=== PATIENT | male | born 1975 | race Caucasian/White ===

== ENCOUNTER 2021-06-04 07:40 | Outpatient (REF) | payer BC, SELFPAY ==
[2021-06-04 09:02] LABS: Cholesterol 185 mg/dL; Glucose Fasting 115 mg/dL (60-99); HDL Cholesterol 46 mg/dL; LDL Cholesterol Calculated 119 mg/dl; Triglycerides 104 mg/dL
== END 2021-06-04 07:41 | disposition home or self-care (01) ==
LOC: HO.LAB 07:40
PROVIDERS: PCP Family Medicine; Visit Provider Family Medicine
DX: Z86.79 Personal history of other diseases of the circulatory system (principal)
CPT/HCPCS: 36415; 80061; 82947

== ENCOUNTER 2021-10-02 06:38 | Outpatient (REF) | payer BC, SELFPAY ==
[2021-10-02 07:39] LABS: Estimated Average Glucose 111 mg/dL; Hemoglobin A1c % 5.5 %
[2021-10-02 07:41] LABS: Glucose Fasting 110 mg/dL (60-99)
[2021-10-02 08:09] LABS: Free T4 (Free Thyroxine) 0.97 ng/dL (0.71-1.85); Thyroid Stimulating Hormone 0.39 uIU/mL (0.32-4.0)
== END 2021-10-02 06:39 | disposition home or self-care (01) ==
LOC: HO.LAB 06:38
PROVIDERS: PCP Family Medicine; Visit Provider Family Medicine
DX: R00.0 Tachycardia, unspecified (principal); R73.9 Hyperglycemia, unspecified
CPT/HCPCS: 36415; 82947; 83036; 84439; 84443

== ENCOUNTER 2024-05-04 10:31 | Day surgery (SDC) | payer BC, SELFPAY ==
[2024-05-02 14:34] VITALS: BMI 27.0
--- NOTE | 2024-05-03 09:54 | HO.ANESPROP2 ---
Documented by User: Chelsi Welsh NP 05/03/24 09:54 HPI - Anesthesia Eval Consult details Narrative: 48yo M for Colonoscopy [facility] Past Medical History Medical History (Updated 05/04/24 @ 11:29 by Concepcion Gu MD) Pneumothorax Surgical History Surgical History History of total replacement of right shoulder joint Social History Social History Household Members: Spouse Patient Tobacco Use Status: Never used Tobacco Have you been hit, kicked, punched, or otherwise hurt by someone within the past year? If so, by whom?: No Are you DNR?: No Advance Directives: No Advance Directives Information Provided: Yes Recently lost weight without trying: No Nutrition Risks: No Nutritional Risk Meds Allergies Allergy/AdvReac Type Severity Reaction Status Date / Time No Known Allergies Allergy Verified 05/02/24 14:34 Home Medications ?Medication ?Instructions ?Recorded ?Confirmed ?Last Taken ?Type No Known Home Meds 05/02/24 05/02/24 Unknown History Exam Height,Weight and Vital Signs: Height 6 ft Weight 90.265 kg Assessment and Plan Assessment Anesthesia Assessment: Chart Reviewed Documented by User: Concepcion Gu MD 05/04/24 11:31 [facility] Past Medical History Medical History (Updated 05/04/24 @ 11:29 by Concepcion Gu MD) Pneumothorax Family History Family history of problems with anesthesia: No Surgical History Surgical History History of total replacement of right shoulder joint History of Problems with Anesthesia: No Social History Social History Household Members: Spouse Patient Tobacco Use Status: Never used Tobacco Have you been hit, kicked, punched, or otherwise hurt by someone within the past year? If so, by whom?: No Are you DNR?: No Advance Directives: No Advance Directives Information Provided: Yes Recently lost weight without trying: No Nutrition Risks: No Nutritional Risk Meds Allergies Allergy/AdvReac Type Severity Reaction Status Date / Time No Known Allergies Allergy Verified 05/02/24 14:34 Home Medications ?Medication ?Instructions ?Recorded ?Confirmed ?Last Taken ?Type No Known Home Meds 05/02/24 05/02/24 Unknown History Exam Height,Weight and Vital Signs: Height 6 ft Weight 90.265 kg Vital Signs Temp Pulse Resp BP Pulse Ox O2 Del Method 05/04/24 10:38 98.7 F 102 H 18 137/87 98 Room Air Airway Mallampati Class: III TM Dist: >3cm Neck ROM: Full Loose/Missing/Broken Teeth: Yes (Chipped top front left. Denies loose or missing teeth) Heart: RRR Lungs: CTAB Assessment and Plan Assessment Anesthesia Assessment: Anesthesia Plan Discussed and Chart Reviewed Final Anesthetic Review Family History of Problems with Anesthesia: No History of Problems with Anesthesia: No NPO: Yes ASA Class: II Final Preanesthetic Review: No Changes in Pt Med Stat, Meds/Allgs Chart Reviewed, Consent Obtained/Reviewed and Anes Risks/Benef Reviewed Patient Risk: Low Procedure Risk: Low Assessment/Block/Sedation in SS: Assess/Block/Sedation-SS Anesthetic Plan Anesthetic Plan: TIVA Disposition: Standard PACU
[2024-05-04 10:38] VITALS: BP 137/87; PULSE 102; RESP 18; TEMP 37.1; O2SAT 98; BMI 27.3
[2024-05-04] MEDS: Lactated Ringers 1,000 ML 100 ML IVCONT (11:06)
[2024-05-04 12:20] VITALS: BP 101/66; PULSE 91; RESP 16; TEMP 36.9; O2SAT 95
--- NOTE | 2024-05-04 12:22 | PM.OP ---
Brief Operative Note Date of Service: 05/04/24 Pre-op diagnosis: Screening Post-op diagnosis: other (Colon polyp) Procedure: Colonoscopy to the cecum and TI with bx/removal of polyp Surgeon: Hernando Barker MD Anesthesia: MAC Was an Parole Supervisor used for this Procedure?: No Estimated blood loss (mL): 2.0 Pathology: other (A. Ascending colon polyp) Condition: stable Disposition: PACU
[2024-05-04 12:35] VITALS: BP 102/68; PULSE 84; RESP 18; TEMP 36.6; O2SAT 97
--- NOTE | 2024-05-04 12:40 | OP_ITS ---
DATE OF SERVICE: 05/04/2024 SURGEON: Hernando Barker MD INDICATIONS: The patient presents for evaluation of colorectal cancer screening. Full consent obtained from him for this, including risks of bleeding and perforation. PREOPERATIVE DIAGNOSIS: Colorectal cancer screening. POSTOPERATIVE DIAGNOSIS: Colorectal cancer screening, small colon polyp, diverticulosis, and internal hemorrhoids. PROCEDURE PERFORMED: Colonoscopy to cecum and terminal ileum with biopsy and removal of polyp. ESTIMATED BLOOD LOSS: COMPLICATIONS: ANESTHESIA: Monitored anesthesia care. ASSISTANTS: SPECIMENS: DESCRIPTION OF PROCEDURE: The patient was placed in the left lateral decubitus position. The digital rectal exam revealed no abnormalities. The Olympus video pediatric colonoscope was entered into the rectum and advanced easily to the cecum. Once in the cecum, I did identify normal-appearing cecal pouch with appendiceal orifice and a normal-appearing ileocecal valve. The terminal ileum was cannulated and appeared normal. The scope was withdrawn back in the colon. The entire cecum and ileocecal valve appeared normal. The scope was slowly withdrawn assessing all mucosal surfaces carefully. Preparation was excellent. In the proximal ascending colon was a flat, approximately 3 or 4 mm polyp, which was biopsied and completely removed with cold biopsy forceps. I did not visualize any other polyps, colitis, nor angiodysplasia. There was a mild amount of sigmoid diverticulosis. In the rectum, scope was retroflexed visualizing internal hemorrhoids, but no other pathology. The rectal mucosa appeared normal. Scope was straightened and withdrawn from the patient. He tolerated the procedure well and was returned to the recovery area in stable condition. IMPRESSION: 1. Small colon polyp. 2. Internal hemorrhoids. 3. Diverticulosis. PLAN: The results of the biopsy will be checked. If the colon polyp is a tubular adenoma, I would recommend a followup coloscopy in 5 years. If it is only hyperplastic, I would recommend a followup coloscopy in 10 years. He will otherwise see me on a p.r.n. basis. MD EMY Sepulveda/CORY / [id number]
== END 2024-05-04 13:10 | disposition home or self-care (01) ==
PROVIDERS: PCP Family Medicine; Visit Provider Internal Medicine
PROC: 0DJD8ZZ Inspection of Lower Intestinal Tract, Via Natural or Artificial Opening Endoscopic (ICD-10-PCS; CPT 45378; principal; 2024-05-04 11:40)
DX: Z12.11 Encounter for screening for malignant neoplasm of colon (principal); D12.2 Benign neoplasm of ascending colon; K57.30 Diverticulosis of large intestine without perforation or abscess without bleeding; K64.8 Other hemorrhoids; Z87.09 Personal history of other diseases of the respiratory system; Z96.611 Presence of right artificial shoulder joint
CPT/HCPCS: 45380; 88305; J2003; J2704

== ENCOUNTER 2025-03-06 15:42 | Outpatient (AMB) | payer BC, SELFPAY ==
--- OUTSIDE RECORDS SUMMARY | 2024-05-04 06:50 | XMS_ITS ---
Author Organization [facility] Address [address] [place] [address] Care Team Providers Care Configuration Technician Name Role Phone Himanshu (RETIRED) Terrence FREED Primary Care Provider Unavailable Hernando Barker Unavailable [phone] REASON FOR VISIT screening colon Problems Problem Type SNOMED Code ICD Code Onset Dates Problem Status W/U Status Risk Notes Problem Diverticular disease of colon (076828876) Diverticulosis of large intestine without perforation or abscess without bleeding (K57.30) Active confirmed Encounters Encounter Location Date Provider Diagnosis [facility] [place] [address], [place] [phone] 05/04/2024 Hernando Barker Colon cancer scree erik [...] * CRISTOPHER ROJASDOB: 5 (49 yo M)Acc No.[id number]:05/04/2024 COLON WITH MAC Patient: CRISTOPHER CHILDS Provider: Sharif Barker MD :1975 A ge:48 Y S ex:Male Date:05/04/2024 Address: [address], [place], [id number] Pcp:Terrence Downs (RETIRED) MD Subjective: * Chief [...] Modifiers: PT Billing Information: * Procedure Codes: 52593 COLONOSCOPY AND BIOPSY. Modifiers: PT * The named appointment provid er may or may not be the originator of this progress note, and it is not deemed complete until electronically signed by the appointment provider. Sign off status: Pending * Provider: Sharif Barker MD Date: 0 05/04/2024 Generated for [place] angelo/Lety/Caronitting on: 05/07/2024 04:16 AM EST
--- NOTE | 2025-03-06 15:43 | A.OFFPC_ITS ---
Vital Signs 03/06/25 15:48 Height 5 ft 10.24 in Weight 87.997 kg BMI 27.6 BP 124/80 Blood Pressure Location Lt brachial Position Sitting Respiration 18 Pulse 85 Pulse Source Pulse Oximeter Temp 97.4 F Temp Source Temporal Artery Scan Pulse Oximetry (%) 99 Oxygen Delivery Method Room Air Intake Visit Reasons: 6 MO F/UP - KRUNAL PT - see comments Deicer Repairer Pneumatic Required: No Accompanied by: Self / Same As Patient Allergies No Known Allergies Allergy (Verified 03/06/25 15:44) Tobacco use date assessed: 03/06/25 Dental Screening Dental Screen Date: 03/06/25 Did you have a dental visit in the last 12 months?: Yes Did you have a dental problem in the last 6 months where you did not have access to dental care?: No Was dental information given to patient?: Patient has dentist HPI HPI Comments History of Present Illness Details 49-year-old male presenting to [facility] care. Last seen by Dr. Downs, last seen about 6 months. Concerns: Snoring- canceled prior sleep study d/t improvement in symptoms. Does have apneic episodes intermittently. Reports this happens primarily with alcohol use Reviewed past medical, family, social, surgical history Health maintenance: Last colonoscopy 04/2024 with 5 year follow-up advised due to tubular adenoma. Dr. Barker ROS: General: No fevers, malaise, unintentional weight loss HEENT: No blurred vision, diplopia. No sore throat, nasal congestion, rhinorrhea, sinus pain, ear pain Cardiovascular: No chest pain, palpitations, or leg edema Respiratory: No shortness of breath, wheezing, cough GI: No abdominal pain, nausea, vomiting, diarrhea, constipation, melena, hematochezia : No dysuria, hematuria, increased urinary frequency, decreased urinary output MSK: No myalgia, back pain Neuro: No headaches, weakness, paresthesias Skin: No rashes or lesions EXAM: Constitutional - Awake and Alert, No apparent distress Eyes - PERRL Cardiovascular - S1S2, RRR, No edema Respiratory - Normal lung expansion, Normal respiratory effort, No respiratory distress, CTA bilaterally Extremities - no calf tenderness bilaterally, no swelling Skin - Warm/Dry Neurological - Alert & oriented x3 Psychological - Appropriate affect [facility] Medical History H/O fracture of hip Pneumothorax Surgical History History of colonoscopy (~05/04/24) History of total replacement of right shoulder joint Family History Maternal Grandmother Stomach cancer Stroke Social History Household Members: Spouse Housing: House Patient Tobacco Use Status: Never used Tobacco e-Cigarette/Vaping Use: Never Used service: No Current occupational status: employed Current occupation: [employer] Questionnaire AUDIT C Alcohol Use Questionnaire (AUDIT-C) 1. How often do you have a drink containing alcohol?: 2-4 times a month 2. How many drinks containing alcohol do you have on a typical day when you are drinking?: 3 or 4 3. How often do you have six or more drinks on one occasion?: Never Total Score: 3 Physical exam (Primary Care) Vital Signs: Last Vital Signs Temp 97.4 F 03/06/25 15:48 Pulse 85 03/06/25 15:48 Resp 18 03/06/25 15:48 BP 124/80 03/06/25 15:48 Pulse Ox 99 03/06/25 15:48 Oxygen Delivery Method Room Air 03/06/25 15:48 BMI result Body Mass Index 27.6 Tobacco/Smoking Status: Tobacco use Status Tobacco use date assessed 03/06/25 03/06/25 15:50 Patient Tobacco Use Status Never used Tobacco 03/06/25 15:50 e-Cigarette/Vaping Use Never Used 03/06/25 15:50 Coding Level of Care Code New Pt Level 4 (52947) Diagnoses Encounter to establish care Z76.89 Snoring R06.83 Sleep apnea G47.30 Fatigue R53.83 Assessment & Plan Assessment & Plan (1) Encounter to establish care: Code(s): Z76.89 - Persons encountering health services in other specified circumstances Category: Medical Plan: 49-year-old male presenting to establish care. Reviewed past medical, surgical, family, social history. Additional plan as below (2) Snoring: Code(s): R06.83 - Snoring Category: Medical Plan: Referred for sleep study (3) Sleep apnea: Code(s): G47.30 - Sleep apnea, unspecified Category: Medical Plan: Referred for sleep study (4) Fatigue: Code(s): R53.83 - Other fatigue Category: Medical Plan: Labs ordered as below. Counseled on healthy sleep habits Orders: Orders Hemoglobin A1c 03/06/25 R53.83 - Other fatigue, Z76.89 - Persons encountering health services in other specified circumstances Lipid Panel 03/06/25 R53.83 - Other fatigue, Z76.89 - Persons encountering health services in other specified circumstances Vitamin D 25-OH Total 03/06/25 R53.83 - Other fatigue TSH reflex Free T4 03/06/25 R53.83 - Other fatigue IRON PROFILE 03/06/25 R53.83 - Other fatigue RT home sleep study 03/06/25 G47.30 - Sleep apnea, unspecified, R06.83 - Snoring, Z87.81 - Personal history of (healed) traumatic fracture Basic Metabolic Panel 03/06/25 R53.83 - Other fatigue, Z76.89 - Persons encountering health services in other specified circumstances Complete Blood Count Auto Diff 03/06/25 R53.83 - Other fatigue, Z76.89 - Persons encountering health services in other specified circumstances Liver Panel 03/06/25 R53.83 - Other fatigue, Z76.89 - Persons encountering health services in other specified circumstances Prostate Specific Antigen 03/06/25 R53.83 - Other fatigue, Z76.89 - Persons encountering health services in other specified circumstances Testosterone, Total 03/06/25 R53.83 - Other fatigue
[2025-03-06 15:48] VITALS: BP 124/80; PULSE 85; RESP 18; TEMP 36.3; O2SAT 99; BMI 27.6
--- OUTSIDE RECORDS SUMMARY | 2025-03-07 04:16 | XMS_ITS | Patient Health Record ---
Author Organization [facility] Address [address] [place] [address] Care Team Providers Care Forensic Science Technician Name Role Phone Himanshu (RETIRED) Terrence FREED Primary Care Provider Unavailable Hernando Barker Unavailable [phone] Allergies No Known Allergies Results Component Value Reference Range Notes Pathology (Not yet reviewed by provider) Interpretation: Performing Lab:[facility], [address] [place] [phone] Notes/Report: Reason For Referral No Information Immunizations Vaccine Route Administration Date Status Comme nts Influenza Unknown 01/04/2024 Refused Social History Tobacco Use: Social History Observation Description Date Details (start date - stop date) Never Smoker NA - NA Social History Drugs/Alcohol: Social Info Question Answer Notes Alcohol Screen Did you have a drink containing alcohol in the past year? Yes How often did you have a drink containing alcohol in the past year? 2 to 4 times a month (2 points) How many drinks did you have on a typical day when you were drinking in the past year? 3 or 4 drinks (1 point) How often did you have 6 or more drinks on one occasion in the past year? 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 [employer] Section Notes: Nonsmoker; 6 beers on the we ekend Problems Problem Type SNOMED Code ICD Code Onset Dates Problem Status W/U Status Risk Notes Problem Pre-procedure evaluation check (942332117) Encounter for other preprocedural examination (Z01.818) Active confirmed Problem Diverticular disease of colon (017740853) Diverticulosis of large intestine without perforation or abscess without bleeding (K57.30) Active confirmed Problem Screening for malignant neoplasm of colon (883887304) Screen for colon cancer (Z12.11) Active confirmed Encounters Encounter Location Date Provider [place] [facility] [place] [address], [place] [phone] [place]/04/2024 Hernando Barker Colon cancer scree erik [...] hemorrhoids (ICD-10 - K64.8) Plan Of Treatment Pending Test Test Name Order Date Pathology 05/04/2024 Future Test Test Name Order Date COLONOSCOPY 01/04/2024 Insurance Providers Payer Name Payer Address Payer Phone Subscriber Number Group Number Insured Name Patient Relationship to Insured Coverage Start Date Coverage End Date [facility] [address] [place], [place] [id number] CRISTOPHER ROJAS Self - patient is the insured Medical (General) History Medical History History ICD Code Denies [place],DM,CVA,Lung disease,renal dise ase Surgical History Surgery Date(Month/Year) Pneumothoraces bilaterallly 1991 Right shoulder replacement after a fract ure 2014
== END 2025-03-06 16:14 | disposition home or self-care (01) ==
PROVIDERS: PCP Physician Assistant; Visit Provider Physician Assistant
DX: Z76.89 Persons encountering health services in other specified circumstances (principal); R06.83 Snoring; G47.30 Sleep apnea, unspecified; R53.83 Other fatigue

== ENCOUNTER → 2025-04-04 07:56 | Outpatient (REF) | payer BC, SELFPAY ==
--- OUTSIDE RECORDS SUMMARY | 2024-05-04 06:50 | XMS_ITS ---
Author Organization [facility] Address [address] [place] [address] Care Team Providers Care Welt Cutter Name Role Phone Himanshu (RETIRED) Terrence FREED Primary Care Provider Unavailable Hernando Barker Unavailable [phone] REASON FOR VISIT screening colon Problems Problem Type SNOMED Code ICD Code Onset Dates Problem Status W/U Status Risk Notes Problem Diverticular disease of colon (078252543) Diverticulosis of large intestine without perforation or abscess without bleeding (K57.30) Active confirmed Encounters Encounter Location Date Provider [place] [facility] [place] [address] [phone] [place]/04/2024 Hernando Barker Colon cancer scree erik Z12.11 ; Colon polyps K63.5 ; Diverticulosis of large intestine without perforation or abscess without bleeding K57.30 and Other hemorrhoids K64.8 Assessments Encounter Date Diagnosis (ICD Code) Assessment Notes Treatment Notes Treatment Clinical Notes Section Notes 05/04/2024 Colon cancer screening (ICD-10 - Z12.11) 05/04/2024 Colon polyps (ICD-10 - K63.5) 05/04/2024 Diverticulosis of large intestine without perforation or abscess without bleeding (ICD-10 - K57.30) 05/04/2024 Other hemorrhoids (ICD-10 - K64.8) Plan Of Treatment No Information Progress Notes * CRISTOPHER ROJASDOB: 5 (49 yo M)Acc No.[id number]:05/04/2024 COLON WITH MAC Patient: CRISTOPHER CHILDS Provider: Sharif Barker MD :1975 A ge:48 Y S ex:Male Date:05/04/2024 Address: [address], [place], [id number] Pcp:Terrence Downs (RETIRED) MD Subjective: * Chief Complaints: * S creening colon Assessment: * Assessment: 1. C olon cancer screening - Z12.11 (Primary) 2 . C olon polyps - K63.5? 3. D iverticulosis of large intestine without perforation or abscess without bleeding - K57.30 4 . O ther hemorrhoids - K64.8 Plan: * Procedure Codes: 4 5380 COLONOSCOPY AND BIOPSY, Modifiers: PT Billing Information: * Procedure Codes: 22382 COLONOSCOPY AND BIOPSY. Modifiers: PT * The named appointment provid er may or may not be the originator of this progress note, and it is not deemed complete until electronically signed by the appointment provider. Sign off status: Pending * Provider: Sharif Barker MD Date: 0 05/04/2024 Generated for [place] angelo/Lety/Karonsmitting on: 06/05/2024 08:01 AM EST
--- OUTSIDE RECORDS SUMMARY | 2025-04-04 08:01 | XMS_ITS | Patient Health Record ---
Author Organization [facility] Address [address] [place] [address] Care Team Providers Care Veneer Sander Name Role Phone Himanshu (RETIRED) Terrence FREED Primary Care Provider Unavailable Hernando Barker Unavailable [phone] Allergies No Known Allergies Results Component Value Reference Range Notes Pathology (Not yet reviewed by provider) Interpretation: Performing Lab:[facility], [address] [place] [phone] Notes/Report: Reason For Referral No Information Immunizations [...] Info Options Details Miscellaneous: Marital status: 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[employer] Section Notes: Nonsmoker; 6 beers on the we ekend Problems Problem Type SNOMED Code ICD Code Onset Dates Problem Status W/U Status Risk Notes Problem Pre-procedure evaluation check (995139233) Encounter for other preprocedural examination (Z01.818) Active confirmed Problem Diverticular disease of colon (219200998) Diverticulosis of large intestine without perforation or abscess without bleeding (K57.30) Active confirmed Problem Screening for malignant neoplasm of colon (686921382) Screen for colon cancer (Z12.11) Active confirmed Encounters Encounter Location Date Provider Diagnosis [facility] [place] [address], [place] [phone] 05/04/2024 Hernando Barker Colon cancer scree erik [...] Insured Coverage Start Date Coverage End Date [facility] [address] [place], [place] [id number] CRISTOPHER ROJAS Self - patient is the insured Medical (General) History Medical History History ICD Code Denies [place],DM,CVA,Lung disease,renal dise ase Surgical History Surgery Date(Month/Year) Pneumothoraces bilaterallly 1991 Right shoulder replacement after a fract ure 2014
== END ==
LOC: HO.SL 07:56
PROVIDERS: PCP Physician Assistant; Visit Provider Physician Assistant
DX: R06.83 Snoring (principal); G47.30 Sleep apnea, unspecified; Z87.81 Personal history of (healed) traumatic fracture
CPT/HCPCS: 95806

== ENCOUNTER → 2025-04-05 08:00 | Outpatient (BNV) | payer BC, SELFPAY | PROVIDERS: PCP Physician Assistant; Visit Provider Psychiatry & Neurology Neurology | DX: G47.33 Obstructive sleep apnea (adult) (pediatric) (principal) | CPT/HCPCS: 95806 ==